=== PATIENT | male | born 1945 | race Caucasian/White ===

== ENCOUNTER 2023-03-18 22:27 | Emergency (ER) | payer MEDICARE, BC ==
[~2023-03-18] VITALS: Ht 177.8 cm; Wt 81.6 kg
[2023-03-18] MEDS ORDERED: TDAP DIPH,PERTUSS,TET VAC/PF 0.5 ML DISP.SYRIN IM ONE (22:43)
[2023-03-18] MEDS ORDERED: NEOMY/BACITRA/POLYMYXIN B OINT UD PACKET TP ONE (22:49)
[2023-03-18] MEDS: TDAP DIPH,PERTUSS,TET VAC/PF 0.5 ML DISP.SYRIN IM ONE (22:52)
[2023-03-18 22:53] VITALS: BP 140/77; O2SAT 98
== END 2023-03-18 22:53 | disposition home or self-care (01) ==
LOC: ER 22:32
DX: S00.81XA Abrasion of other part of head, initial encounter (principal); Z98.890 Other specified postprocedural states; W18.39XA Other fall on same level, initial encounter; Y93.89 Activity, other specified; Y92.89 Other specified places as the place of occurrence of the external cause; Y99.8 Other external cause status
CPT/HCPCS: 90715; A4606; A4663

== ENCOUNTER 2023-10-05 21:55 | Emergency (ER) | payer MEDICARE, BC ==
[~2023-10-05] VITALS: Ht 177.8 cm; Wt 81.6 kg
[2023-10-05] MEDS ORDERED: LIDOCAINE 1%-EPI 1:100,000 20 ML VIAL ONE (22:51)
[2023-10-05] MEDS ORDERED: SODIUM BICARBONATE 4.2 % (NEUT) 5 ML VIAL ONE (22:52)
[2023-10-05] MEDS ORDERED: CEPH500T PO (23:28)
[2023-10-05] MEDS ORDERED: CEphaleXIN 500 MG CAPSULE ONE (23:29)
[2023-10-05] MEDS: LIDOCAINE 1%-EPI 1:100,000 20 ML VIAL IJ ONE (23:31)
[2023-10-05] MEDS: SODIUM BICARBONATE 4.2 % (NEUT) 5 ML VIAL TP ONE (23:31)
[2023-10-05] MEDS: CEphaleXIN 500 MG CAPSULE PO ONE (23:31)
[2023-10-05 23:33] VITALS: BP 129/91; O2SAT 97
== END 2023-10-05 23:34 | disposition home or self-care (01) ==
LOC: ER 21:58
DX: S61.210A Laceration without foreign body of right index finger without damage to nail, initial encounter (principal); Z98.890 Other specified postprocedural states; Z79.899 Other long term (current) drug therapy; W26.8XXA Contact with other sharp object(s), not elsewhere classified, initial encounter; Y93.89 Activity, other specified; Y92.89 Other specified places as the place of occurrence of the external cause; Y99.8 Other external cause status
CPT/HCPCS: 12002; 99283; J3490; A4606; A4663